=== PATIENT | male | born 1990 | race African-American/Black ===

== ENCOUNTER 2020-03-07 15:40 | Emergency (ER) | payer SELFPAY ==
[~2020-03-07] VITALS: Ht 190.5 cm; Wt 125.0 kg
[2020-03-07] MEDS ORDERED: ACETAMINOPHEN 500 MG TABLET PO ONE ×2 (16:02→16:15)
[2020-03-07] MEDS ORDERED: IV NORMAL SALINE 1,000ML 1,000 ML IV ONE (16:15)
--- NOTE | 2020-03-07 16:31 | RAD ---
Exam: Chest one view INDICATION: Short of air TECHNIQUE: Frontal view of the chest Comparisons: None FINDINGS: The cardiomediastinal silhouette and pulmonary vessels are within normal limits. Patchy bilateral airspace disease. No pleural effusion. IMPRESSION: Patchy bilateral airspace disease Electronically signed by: Alek Gonzalez MD (03/07/2020 4:28 PM) [id number]
--- NOTE | 2020-03-07 16:41 | PHYS DOC ---
Adult General Chief Complaint Chief Complaint: FATIGUE HPI HPI Patient is a 29 year old male patient who presents with SOA. States he has been feeling ill for the past 7-8 days, states he had a COVID test 3 days ago at [facility] and has not gotten his results yet. Had taken one previously at [facility] and was negative. Has been around a friend who had tested positive 3 days ago. States he has body aches, fever starting today, Denies nausea, vomiting. States he had diarrhea that started early in his illness but it has since resolved. Has been eating and drinking some, but has not had much of an appetite. Denies any chronic medical concerns. (ESTEFANY BURGER APRN) Review of Systems Review of Systems Constitutional: Reports fever and chills today [] Eyes: Denies change in visual acuity, redness, or eye pain [] HENT: Denies nasal congestion or sore throat [] Respiratory: reports occasional cough, reports shortness of breath, worsened with exertion [] Cardiovascular: No additional information not addressed in HPI [] GI: Denies nausea, vomiting, bloody stools or diarrhea, does report diarrhea early in his illness reports generalized abdominal discomfort [] : Denies dysuria or hematuria [] Musculoskeletal: Denies back pain or joint pain [] Integument: Denies rash or skin lesions [] Neurologic: Denies headache, focal weakness or sensory changes [] Endocrine: Denies polyuria or polydipsia [] All other systems were reviewed and found to be within normal limits, except as documented in this note. (ESTEFANY BURGER APRN) Current Medications Current Medications Current Medications Medications (Trade) Dose Ordered Sig/[facility] Start Time Stop Time Status Last Admin Dose Admin Acetaminophen (Tylenol) 1,000 mg 1X ONCE 03/07/20 16:15 03/07/20 16:17 DC 03/07/20 16:15 1,000 MG Sodium Chloride 1,000 ml @ 1,000 mls/hr 1X ONCE 03/07/20 16:15 03/07/20 17:14 03/07/20 16:12 1,000 MLS/HR (ESTEFANY BURGER APRN) Allergies Allergies Allergies Coded Allergies Type Severity Reaction Last Updated Verified No Known Drug Allergies 03/07/20 No (ESTEFANY BURGER APRN) Physical Exam Physical Exam Constitutional: Well developed, well nourished, no acute distress, non-toxic appearance. Appears uncomfortable, diaphoretic [] HENT: Normocephalic, atraumatic, oropharynx moist, no oral exudates, nose normal. [] Eyes: PERRLA, EOMI, conjunctiva normal, no discharge. [] Neck: Normal range of motion, no tenderness, supple, no stridor. [] Cardiovascular:Heart rate regular rhythm, tachycardic[] Lungs & Thorax: Patient conversational with no noted air hunger, speaking in full sentences, occasional faint cough noted [] Abdomen: , soft, no tenderness, no masses, no pulsatile masses. [] Skin: Warm, dry, no erythema, no rash. [] Back: No tenderness, no CVA tenderness. [] Extremities: No tenderness, no cyanosis, no clubbing, ROM intact, no edema. [] Neurologic: Alert and oriented X 3, normal motor function, normal sensory function, no focal deficits noted. [] Psychologic: Affect normal, judgement normal, mood normal. [] Focused exam limited due to COVID-19 symptoms, and attempt to limit exposure to clinicians (ESTEFANY BURGER APRN) EKG EKG [] (ESTEFANY BURGER APRN) Radiology/Procedures Radiology/Procedures PROCEDURE: CHEST AP ONLY Exam: Chest one view INDICATION: Short of air TECHNIQUE: Frontal view of the chest Comparisons: None FINDINGS: The cardiomediastinal silhouette and pulmonary vessels are within normal limits. Patchy bilateral airspace disease. No pleural effusion. IMPRESSION: Patchy bilateral airspace disease Electronically signed by: Alek Gonzalez MD (03/07/2020 4:28 PM) [id number] []PROCEDURE: CT ANGIOGRAPHY CHEST Exam: CT of chest with contrast INDICATION: Short of air, d-dimer TECHNIQUE: Sequential axial images through the chest obtained following the administration 100 mL of Omni 350 IV contrast. Sagittal and coronal reformatted images were reconstructed from the axial data and reviewed. Comparisons: Chest x-ray same day FINDINGS: Visualized portions of the thyroid are unremarkable. No enlarged mediastinal lymph nodes are identified. Heart size is normal. No pericardial effusion. Thoracic aorta has a normal course and caliber. Pulmonary artery is not enlarged. No pulmonary embolus identified within the main, lobar or segmental pulmonary arteries. Airways are patent. Patchy areas of groundglass opacity noted in the lungs bilaterally. No suspicious lung nodules. No pleural effusion or thickening. Diffuse hepatic steatosis. Otherwise, visualized upper abdomen is unremarkable. No suspicious osseous lesions or acute fractures. IMPRESSION: 1. No pulmonary embolus identified within the main, lobar or segmental pulmonary arteries. 2. Extensive patchy groundglass opacity in lungs bilaterally. Correlate for atypical/viral causes such as Covid. Exposure: One or more of the following in the visualized dose reduction techniques were utilized for this examination: 1. Automated exposure control 2. Adjustment of the MA and/or KV according to patient size 3. Use of iterative of reconstructive technique (ESTEFANY BURGER APRN) Heart Score Risk Factors: Risk Factors: DM, Current or recent (<one month) smoker, HTN, HLP, family history of CAD, obesity. Risk Scores: Risk Factors: DM, Current or recent (<one month) smoker, HTN, HLP, family history of CAD, obesity. (ESTEFANY BURGER APRN) Course & Med Decision Making Course & Med Decision Making Pertinent Labs and Imaging studies reviewed. (See chart for details) [] Reviewed lab and imaging findings with patient, noting high suspicions of Covid, especially with patient's recent exposure. Patient without any hypoxia at this time, maintaining 93 to 95% SPO2. No respiratory distress at this time. Discussed importance of following up with primary care in telemedicine, the significance of continued quarantine. Will provide short course of dexamethasone p.o. for respiratory illness. Emphasized importance of hydration and rest with patient. Patient in agreement with this plan, advised to return to ER if he has increasing shortness of breath or discomfort. Patient with no further questions or concerns (ESTEFANY BURGER APRN) Dragon Disclaimer Dragon Disclaimer This electronic medical record was generated, in whole or in part, using a voice recognition dictation system. (ESTEFANY BURGER APRN) Attending Co-Sign The patient was seen and interviewed as well as examined at the bedside. The chart was reviewed. The case was discussed. Agree with the plan of care. (AIDA ALANIZ DO) Departure Departure: Impression: Primary Impression: COVID-19 Disposition: 01 DC HOME SELF CARE/HOMELESS Condition: STABLE Referrals: PCP,NO (PCP) Additional Instructions: You have been tested for or diagnosed with COVID-19. It is an infection caused by a new type of coronavirus. COVID-19 will cause cold-like or mild flu symptoms in most. It can cause more severe symptoms like problems breathing in some. There is no treatment for COVID-19. The body will clear the infection over time. Self-care will help to ease discomfort. Steps to Take: Self-Care Rest as needed. Healthy habits may help you feel better. Steps include: Choose healthy foods including fruits and vegetables. Drink water throughout the day. Get plenty of sleep each night. If you smoke, try to quit. It may ease breathing. Avoid alcohol. Keep Others Healthy The virus can spread to others. Droplets are released every time you sneeze or cough. The droplets can get into the mouth, nose, or eyes of people near you and lead to infection. To lower the chances of spreading COVID-19 to others: Stay at home until your doctor has said it is safe to leave. If you tested positive this will mean staying isolated until both of the following are true: At least 7 days have passed since the start of illness. You are free of fever for at least 72 hours without the use of medicine. During this time: - Avoid public areas, events, or transportation. Do not return to work or school until your doctor has said it is safe to do so. - Call ahead if you need to go to a medical center. Let them know you may have COVID-19. It will help them guide you where to go. They may also ask you to wear a facemask when you come to the office. - If you call for emergency medical services, let them know you may have COVID- 19. While at home: - Try to avoid close contact with others. Stay about 6 feet away. - If possible, spend most of your time in a separate room from others. - Use a face mask if you will be in close contact with others such as sharing a room or vehicle. - Have someone wipe down common surfaces in the home. Use household sugar coating hand every day on areas like doorknobs, counters, or sinks. - Cough or sneeze into a tissue. Throw the tissue away right after use. If a tissue is not available, cough or sneeze into your elbow. - Wash your hands often. Wash them after sneezing or coughing. Use soap and water and wash for at least 20 seconds. Alcohol based hand drycleaner can be used if soap and water is not available. - Do not prepare food for others. Avoid sharing personal items like forks, spoons, or toothbrushes. - Avoid close contact with pets while you are sick. There is no evidence of the virus passing to pets. This is a safety step until more is known about this virus. Isolation can be frustrating. Social interaction can help. Keep in touch with friends and family through phone and tech options. You can still interact with others in your home, just keep a safe distance of about 6 feet. Follow-up: Your doctors office will check in with you to see if there are any changes in your health. You may be asked to keep track of symptoms to share with them. They will also let you know when you are clear to be in public again. Problems to Look Out For: Contact your doctor if your recovery is not going as you expect. Get emergency care if you have problems such as: - Trouble breathing - Nonstop chest pain or pressure - Changes in awareness, confusion, or problems waking - Lips or face have bluish color - Worsening of symptoms If you think you have an emergency, call for emergency medical services right away. [facility] Dexamethasone (Decadron) 6 Mg Tablet 1 TAB PO DAILY for COVID for 5 Days, #5 TAB 0 Refills Prov: ESTEFANY BURGER APRN 03/07/20 ESTEFANY BURGER APRN Mar 07, 2020 16:41 AIDA ALANIZ DO Mar 07, 2020 23:34
[2020-03-07 16:46] LABS: CALCIUM 8.5 mg/dL (8.5-10.1); CREATININE 1.5 mg/dL (0.7-1.3); GFR 67.9; POTASSIUM 3.4 mmol/L (3.5-5.1)
[2020-03-07 16:58] LABS: BASO % 0 % (0-3); EOS % 0 % (0-3); HEMATOCRIT 42.3 % (39.0-53.0); HEMOGLOBIN 14.1 g/dL (13.0-17.5); LYMPH # 0.8 x10^3/uL (1.0-4.8); LYMPH % 11 % (24-48); MEAN CORPUSCULAR HEMOGLOBIN 29 pg (25-35); MEAN CORPUSCULAR HGB CONC 33 g/dL (31-37); MEAN CORPUSCULAR VOLUME 87 fL (79-100); MONO # 0.5 x10^3/uL (0.0-1.1); MONO % 7 % (0-9); NEUT # 6.2 x10^3uL (1.8-7.7); NEUT % 82 % (31-73); PLATELET COUNT 221 x10^3/uL (140-400); RED BLOOD COUNT 4.87 x10^6/uL (4.30-5.70); RED CELL DISTRIBUTION WIDTH 14.1 % (11.5-14.5); WHITE BLOOD COUNT 7.5 x10^3/uL (4.0-11.0)
[2020-03-07 16:59] LABS: ALBUMIN 3.5 g/dL (3.4-5.0); ALBUMIN/GLOBULIN RATIO 0.7 (1.0-1.7); TOTAL PROTEIN 8.4 g/dL (6.4-8.2)
[2020-03-07] MEDS ORDERED: CONTRAST GIVEN. MC PRN (17:45)
[2020-03-07] MEDS ORDERED: IOHEXOL 350 MG/ML 100 ML VIAL. IV ONE (17:45)
[2020-03-07 17:55] VITALS: BP 141/69
--- NOTE | 2020-03-07 18:54 | RAD ---
Exam: CT of chest with contrast INDICATION: Short of air, d-dimer TECHNIQUE: Sequential axial images through the chest obtained following the administration 100 mL of Omni 350 IV contrast. Sagittal and coronal reformatted images were reconstructed from the axial data and reviewed. Comparisons: Chest x-ray same day FINDINGS: Visualized portions of the thyroid are unremarkable. No enlarged mediastinal lymph nodes are identified. Heart size is normal. No pericardial effusion. Thoracic aorta has a normal course and caliber. Pulmonary artery is not enlarged. No pulmonary embolus identified within the main, lobar or segmental pulmonary arteries. Airways are patent. Patchy areas of groundglass opacity noted in the lungs bilaterally. No suspicious lung nodules. No pleural effusion or thickening. Diffuse hepatic steatosis. Otherwise, visualized upper abdomen is unremarkable. No suspicious osseous lesions or acute fractures. IMPRESSION: 1. No pulmonary embolus identified within the main, lobar or segmental pulmonary arteries. 2. Extensive patchy groundglass opacity in lungs bilaterally. Correlate for atypical/viral causes such as Covid. Exposure: One or more of the following in the visualized dose reduction techniques were utilized for this examination: 1. Automated exposure control 2. Adjustment of the MA and/or KV according to patient size 3. Use of iterative of reconstructive technique FOR INTERNAL CODING PURPOSES Critical result: Findings discussed with ESTEFANY BURGER at 03/07/2020 6:50 PM. RESULT CODE: (C) Electronically signed by: Alek Gonzalez MD (03/07/2020 6:51 PM) [id number]
[2020-03-07] MEDS ORDERED: DEXA6TAB6 PO (19:04)
== END 2020-03-07 19:18 | disposition home or self-care (01) ==
LOC: ER 15:40
DX: U07.1 COVID-19 (principal); R50.9 Fever, unspecified; R19.7 Diarrhea, unspecified; R06.02 Shortness of breath; R05 Cough
CPT/HCPCS: 36415; 71045; 71275; 80053; 83605; 85025; 85379; 87040; 96360; 99285; J7030; Q9967